=== PATIENT | male | born 1940 | race Caucasian/White ===

== ENCOUNTER → 2021-07-17 | Day surgery (SDC) | payer MEDICARE ==
[~2021-07-17] MED LIST: ASPI-630 PO; ATOR20TA58 PO; BUPIVACAINE MPF 0.25% 30 ML VIAL. ONE; DOXA4TAB3 PO; LIDOCAINE 1% PF 30 ML VIAL. ONE; QUIN40TA16 PO; TRIA1CAP3 PO; multivitamin PO; potassium PO
[2021-07-17 11:33] VITALS: BP 128/82
== END | disposition home or self-care (01) ==
LOC: SURG 10:23
PROVIDERS: ATTEND Anesthesiology
DX: M47.816 Spondylosis without myelopathy or radiculopathy, lumbar region (principal); M54.59 Other low back pain; G89.29 Other chronic pain; I10 Essential (primary) hypertension; M19.90 Unspecified osteoarthritis, unspecified site; Z98.890 Other specified postprocedural states; Z79.899 Other long term (current) drug therapy
CPT/HCPCS: 64493; 64494; 64495; J3490

== ENCOUNTER → 2021-07-31 | Day surgery (SDC) | payer MEDICARE ==
[~2021-07-31] MED LIST changes: -BUPIVACAINE MPF 0.25% 30 ML VIAL. ONE; -LIDOCAINE 1% PF 30 ML VIAL. ONE
[2021-07-31 09:31] VITALS: BP 136/75
== END | disposition home or self-care (01) ==
LOC: SURG 09:26
PROVIDERS: ATTEND Anesthesiology
DX: M47.816 Spondylosis without myelopathy or radiculopathy, lumbar region (principal); I10 Essential (primary) hypertension; M19.90 Unspecified osteoarthritis, unspecified site; M79.18 Myalgia, other site; Z79.82 Long term (current) use of aspirin; Z79.899 Other long term (current) drug therapy; Z91.040 Latex allergy status
CPT/HCPCS: 99213; G0463